=== PATIENT | male | born 1985 | race African-American/Black ===

== ENCOUNTER 2018-06-15 21:07 | Emergency (ER) | payer MEDICAID ==
[~2018-06-15] VITALS: Ht 172.7 cm; Wt 72.6 kg
--- NOTE | 2018-06-15 21:07 | NUR ---
WILMA AND AMBULATED TO LOBELZBIETA
[2018-06-15 21:08] VITALS: BP 116/56
--- NOTE | 2018-06-15 22:50 | NUR ---
PT TAKEN TO BED 6
--- NOTE | 2018-06-15 23:20 | NUR ---
PT BIB SELF C/O BL LEG WEAKNESS. PT STATES BL LEGS FEEL LIKE JELLY AND THEY ARE GOING TO GIVE OUT X2 MONTHS; 0/10 PAIN AT THIS TIME. DENIES TRAUMA. +FLIGHT OF IDEAS, +CLEAR SPEECH. DENIES N/V/D. PT STATES HE IS HOMELESS, STATES "IN THE PROCESS OF GETTING AN APARTMENT W/ SOBER LIVING"; PT PREFFERENCE IS TO GO BACK TO THE STREETS UPON DISCHARGE. DENIES SI. --BREATHING EQUAL AND UNLABORED. LUNG SOUND CLEAR BL. BOWEL SOUNDS ACTIVE X4 QUAD. RADIAL PULSES WNL BL. ER AWARE OF PT STATUS. WILL CONTINUE TO MONITOR. PMH: SCHIZOAFFECTIVE, BI-POLAR, ANXIETY RX: SEROQUEL, BUSPAR, WELLBUTRIN Addendum: 06/16/18 at 0018 by [email or web address] PT BIB SELF C/O BL LEG WEAKNESS. PT STATES BL LEGS FEEL LIKE JELLY AND THEY ARE GOING TO GIVE OUT X2 MONTHS; 0/10 PAIN AT THIS TIME. DENIES TRAUMA. +FLIGHT OF IDEAS, +CLEAR SPEECH. DENIES N/V/D. PT STATES HE IS HOMELESS, STATES "IN THE PROCESS OF GETTING AN APARTMENT W/ SOBER LIVING"; PT PREFFERENCE IS TO GO BACK TO THE STREETS UPON DISCHARGE. DENIES SI. --BREATHING EQUAL AND UNLABORED. LUNG SOUND CLEAR BL. BOWEL SOUNDS ACTIVE X4 QUAD. RADIAL PULSES WNL BL. NO REDNESS, EDEMA OR DEFORMITY NOTED TO LEGS BL. PEDIAL PULSES WNL BL. PT IN GOWN, IN BED; BED IN LOWER LOCKED POSITION, BED RAILS UP X1. ER AWARE OF PT STATUS. WILL CONTINUE TO MONITOR. PMH: SCHIZOAFFECTIVE, BI-POLAR, ANXIETY RX: SEROQUEL, BUSPAR, WELLBUTRIN
--- NOTE | 2018-06-15 23:29 | NUR ---
Dr. Sin evaluating patient at bedside.
[2018-06-16 00:01] LABS: BASOPHILS % (AUTO) 0.5 % (0.0-2.0); EOSINOPHILS # (AUTO) 0.1 K/uL (0-0.4); EOSINOPHILS % (AUTO) 0.6 % (0.0-4.0); HEMATOCRIT 38.6 % (36-52); HEMOGLOBIN 12.9 g/dL (12.0-18.0); LYMPHOCYTES % (AUTO) 33.1 % (20.5-51.1); MEAN CORPUSCULAR HEMOGLOBIN 28 pg (27-31); MEAN CORPUSCULAR HGB CONC 34 g/dL (33-37); MEAN CORPUSCULAR VOLUME 84.8 fL (80-94); MONOCYTES # (AUTO) 0.9 K/uL (0.8-1.0); NEUTROPHILS % (AUTO) 55.8 % (42.2-75.2); PLATELET COUNT (AUTO) 398 K/uL (140-450); RED BLOOD CELL COUNT(AUTO) 4.55 MIL/uL (4.20-6.10); RED CELL DISTRIBUTION WIDTH 13.6 % (11.6-13.7)
[2018-06-16 00:14] LABS: ANION GAP 13.3 (8-16); CARBON DIOXIDE 29.3 mmol/L (21-32); CREATININE 0.9 mg/dL (0.7-1.3); POTASSIUM 3.6 mmol/L (3.5-5.1)
[2018-06-16 00:21] LABS: ALBUMIN 3.4 g/dL (3.4-5.0); TOTAL BILIRUBIN 0.2 mg/dL (0.0-1.0)
[2018-06-16 00:45] VITALS: BP 128/72
--- NOTE | 2018-06-16 00:45 | NUR ---
Patient discharged with v/s stable. Written and verbal after care instructions given and explained. Patient verbalized understanding. Ambulatory with steady gait. All questions addressed prior to discharge. Advised to follow up with PMD.
== END 2018-06-16 00:45 | disposition home or self-care (01) ==
LOC: MED 21:07
DX: R25.2 Cramp and spasm (principal); F41.9 Anxiety disorder, unspecified
CPT/HCPCS: 36415; 80053; 82550; 85025; 99283